=== PATIENT | female | born 1975 | race Caucasian/White ===

== ENCOUNTER 2020-05-01 08:56 | Outpatient (CLI) | payer BC, SELFPAY ==
[2020-05-01 09:11] LABS: Hematocrit 45.3 % (35.0-49.0); Hemoglobin 15.3 g/dL (12.0-15.0)
--- NOTE | 2020-05-01 09:20 | ECG_ITS ---
Measurements Intervals [place] Rate: 76 P: 66 IL: 128 QRS: 71 QRSD: 73 T: 61 QT: 342 QTc: 386 Interpretive Statements SINUS RHYTHM RSR' IN V1 OR V2, PROBABLY NORMAL VARIANT NORMAL ECG Electronically Signed On 05-01-2020 9:37:51 CDT by Carroll Donohue D.O.
== END 2020-05-01 08:57 | disposition home or self-care (01) ==
PROVIDERS: PCP Nurse Practitioner Psychiatric/Mental Health; Visit Provider Anesthesiology
DX: N92.6 Irregular menstruation, unspecified (principal); Z72.0 Tobacco use
CPT/HCPCS: 36415; 85014; 85018; 93005

== ENCOUNTER 2020-05-05 13:44 | Outpatient (CLI) | payer BC, SELFPAY ==
--- NOTE | ~2020-05-05 | MM_ITS ---
EXAMINATION: MM screening dwaine BI w breana HISTORY: Screening mammogram TECHNIQUE: Craniocaudal and mediolateral oblique 3-D tomosynthesis images were obtained and synthetic 2-D images were generated. CAD analysis was submitted and interpreted. COMPARISON: 02/18/2019, 02/16/2018, 02/06/2017 bilateral digital screening mammogram examinations BREAST PARENCHYMAL COMPOSITION: The breasts are extremely dense, which lowers the sensitivity of mamm ography. FINDINGS: There is no evidence of suspicious mass, calcification, or architectural distortion to sugg est malignancy in either breast. There has been no suspicious interval change. IMPRESSION: 1. No mammographic evidence of malignancy. 2. Recommend routine screening mammography in one year. BI-RADS Category 1: Negative Reviewed, dictated and finalized at location A.
== END 2020-05-05 13:45 | disposition home or self-care (01) ==
LOC: CHSIMG 13:45
PROVIDERS: PCP Nurse Practitioner Psychiatric/Mental Health; Visit Provider Nurse Practitioner Psychiatric/Mental Health
DX: Z12.31 Encounter for screening mammogram for malignant neoplasm of breast (principal)
CPT/HCPCS: 77063; 77067

== ENCOUNTER 2020-05-09 01:25 | Outpatient (CLI) | payer BC, SELFPAY ==
[2020-05-09 19:17] LABS: SARS-CoV-2 RNA PCR Negative
== END 2020-05-09 01:26 | disposition home or self-care (01) ==
PROVIDERS: PCP Nurse Practitioner Psychiatric/Mental Health; Visit Provider Student in an Organized Health Care Education/Training Program
DX: Z01.818 Encounter for other preprocedural examination (principal); Z11.59 Encounter for screening for other viral diseases
CPT/HCPCS: 87635; C9803; U0003

== ENCOUNTER 2020-05-11 00:46 | Day surgery (SDC) | payer BC, SELFPAY ==
[2020-04-28 09:34] VITALS: BMI 20.2
--- NOTE | 2020-05-11 07:25 | P.HP_ITS ---
H&P: HPI History of Present Illness Chief complaint: Irregular Bleeding Narrative: Radha Cannon is a 45 year old female who presents for hysteroscopy, D&C, endometrial ablation for abnormal uterine bleeding. She initially presented with intermenstrual bleeding for several months. pt requested surgical management of AUB via endometrial ablation. Review of Systems Cardiovascular: Cardiovascular: Denies chest pain, Denies leg edema, Denies palpitations, Denies dyspnea and Denies dyspnea on exertion Respiratory: Respiratory: Denies cough, Denies dyspnea and Denies dyspnea on exertion Gastrointestinal: Gastrointestinal: Denies abdominal pain, Denies cons tipation, Denies diarrhea, Denies nausea and Denies vomiting Genitourinary: Genitourinary: Denies hematuria, Denies urinary frequency, Denies dysuria, Denies pelvic pain, Denies urinary incontinence and Denies vaginal discharge Neurologic: Reports system reviewed and no additional complaints, except as documented Psychiatric: Psychiatric: Reports no additional psychiatric complaints Endocrine: Endocrine: Denies palpitations Meds Home Medications and Allergies Home Medications Medication Instructions Recorded Confirmed Type citalopram 20 mg PO DAILY 04/28/20 04/28/20 History Allergies Allergy/AdvReac Type Severity Reaction Status Date / Time Penicillins Allergy Unknown Hives Unverified 05/02/20 09:18 Exam Const: General: no acute distress Eyes: EOM: EOMs intact bilaterally Neck: Neck: supple Thyroid: thyroid normal Chest: Breast/axilla inspection: normal inspection of the breasts Breas t/axilla palpation: normal palpation of the breasts, normal palpation of the axillae and no axillary lymphadenopathy Resp: Effort & Inspection: normal respiratory effort Auscultation: clear to auscultation bilaterally Cardio: Rate: regular rate Rhythm: regular rhythm GI: Inspection: non-distended GI Palp: Yes Soft to palpation, No Tenderness to palpation present (GI) and No Guarding due to palpation present (GI) Auscultation: normal bowel sounds : General: No bladder normal to palpation External Female Exam: normal external appearance Speculum Exam - Vagina: normal vaginal discharge and No vaginal bleeding Speculum Exam - Cervix: nontender Bimanual exam- vagina & uterus: No bladder normal to palpation and No Cervical tenderness present OB/external & speculum: No vaginal bleeding Skin: General skin exam: normal color and no rashes or lesions noted Neuro: Cognition (Neuro): normal cognition Speech: normal speech Extrem: General: normal to inspection and no edema Psych: Mental Status: mental status grossly normal Affect: normal affect Assessment and Plan Assessment and plan (1) Abnormal uterine bleeding (AUB): Code(s): N93.9 - Abnormal uterine and vaginal bleeding, unspecified Status: Acute Assessment and Plan: pt c/o intolerable intermenstrual bleeding for several months pt requested surgical management via endometrial ablation pelvic US showed uterus meansuring 8.7cm with a 16mm strip and no structural causes of AUB will plan for hystereoscopy, D&C, endometrial ablation
[2020-05-11 10:00] VITALS: BP 114/70; PULSE 85; RESP 14; TEMP 36.7; O2SAT 99
--- NOTE | 2020-05-11 10:21 | WPDANESEPPF ---
Anes - Initial Pre Proc Eval Procedure: Operation Date: 05/11/20 12:00 Proposed Procedures p Hysteroscopy, Dilation and Curettage, Novasure Endometrial Ablation - Som Tam MD Date/Time: 05/11/20 10:21 Surgeon: Som Tam MD Pre Op Diagnosis: Irregular Bleeding Patient Data Age: 45 Gender: F Height: 5 ft 2 in Weight: 50.35 kg Allergies Allergy/AdvReac Type Severity Reaction Status Date / Time Penicillins Allergy Unknown Hives Unverified 05/02/20 09:18 Home Medications Medication Instructions Recorded Confirmed Type citalopram 20 mg PO DAILY 04/28/20 04/28/20 History Patient hx anesthesia problems: none Family hx anesthesia problems: none [facility] Past Medical History Medical History (Updated 05/11/20 @ 10:22 by Archie Li MD) Anxiety Tobacco abuse Anes - Eval Final PreProcedure Day of Procedure 05/11/20 10:21 Patient weight: normal Heart: regular rate and rhythm Lungs: decreased breath sounds Airway: Mallampati scale class II Neurological: alert and oriented Last oral intake: >/= 8 hours ASA classification: III Emergent: no Anesthetic plan: proceed Anesthesia type and monitoring: general GIVS and standard monitoring Informed Consent: The patient's anesthetic plan and its attendant risks and benefits were discussed with the patient/family/POA. Questions were solicited and answers provided to the satisfaction of the patient/family/POA.
[2020-05-11] MEDS: ACETAMINOPHEN 500 MG TABLET 1000 MG PO (10:25)
[2020-05-11] MEDS: LACTATED RINGERS 1,000 ML 30 ML IV CONT ×2 (10:30→12:53)
[2020-05-11] MEDS: KETOROLAC 30 MG/ML VIAL (*BKC) 15 MG IV PUSH (12:43)
--- NOTE | 2020-05-11 12:49 | PM.PROC ---
Procedure Note - Detailed Date of procedure: 05/11/20 Pre-op diagnosis: Irregular Bleeding Post-op diagnosis: same Procedure performed: Paracervical block Hysteroscopy D&C endometrial ablation Description of procedure: The risks, benefits, indications and alternatives were reviewed with the patient and informed consent was obtained. The patient was taken to the operating room and placed under general anesthesia without incident. A vaginal exam was performed and the uterus was noted to be retroverted. The patient was placed in dorsolithotomy position, prepped and draped in the usual sterile fashion. Sterile speculum was placed in the vagina, and the cervix was grasped with a tenaculum. A paracervical block was performed with 1% lidocaine. The cervix was dilated and the hysteroscope was introduced. The cervical canal was visualized and the hysteroscope was passed into the uterine cavity without incident. The endometrial lining was visualized. Both ostia of the fallopian tubes were visualized and appear to be grossly normal. The hysteroscope was removed, and the cervix was further dilated to allow for passage of the sharp curette. The sharp curette was advanced to the fundus and endometrial curettage was performed, with the curettage sampling being preserved and sent for pathology. The uterus sounded to 8 cm total, with the cervical length measured as 2.5 cm, with a difference of 5.5 cm for the uterine cavity. The Novasure was introduced into the cavity, and the uterine cavity width was measured to be 3 cm. Power setting was 91 on the Novasure. The device was tested and noted to have good seal, and the ablation process itself took 95 seconds. The Novasure device was removed and the hysteroscope was reintroduced, visualizing the ablation of the endometrium in total. There was minimal bleeding noted and the tenaculum was removed with good hemostasis noted. Instrument, sharp, and sponge counts were correct. The patient tolerated the procedure well. The patient was taken to the recovery area in stable condition. Anesthesia: GLMA Surgeon: Som Tam MD Estimated blood loss (mL): 15 Drains: No Packing: No Pathology: yes (endometrial curettings) Complications: No immediate complications Condition: stable Disposition: PACU
[2020-05-11 12:53] VITALS: BP 88/50; PULSE 78; RESP 14; O2SAT 95
[2020-05-11 13:23] VITALS: BP 101/71; PULSE 67; RESP 14
[2020-05-11 13:53] VITALS: BP 105/67; PULSE 60; RESP 14
== END 2020-05-11 14:15 | disposition home or self-care (01) ==
PROVIDERS: PCP Nurse Practitioner Psychiatric/Mental Health; Visit Provider Student in an Organized Health Care Education/Training Program
PROC: 0U5B8ZZ Destruction of Endometrium, Via Natural or Artificial Opening Endoscopic (ICD-10-PCS; CPT 58563; principal; 2020-05-11 12:00)
DX: N93.9 Abnormal uterine and vaginal bleeding, unspecified (principal); N84.0 Polyp of corpus uteri; F41.9 Anxiety disorder, unspecified
CPT/HCPCS: 58563; 87635; 88305; A9270; C9803; J1100; J1885; J2250; J2405; J2704; J3010; J7030; J7120; U0003

== ENCOUNTER 2020-08-05 11:52 | Emergency (ER) | payer BC, SELFPAY ==
--- NOTE | ~2020-08-05 | CT_ITS ---
EXAMINATION: CT abdomen pelvis wo con DATE: 08/05/2020 15:19 INDICATION: Flank pain TECHNIQUE: Computed tomography (CT) of the abdomen and pelvis was performed without intravenous contr ast. Automated exposure control and iterative reconstruction technique were employed. The dose-length product was 173.40 mGy-cm. COMPARISON: None FINDINGS: Small calcified nodule at the right lower lobe consistent with old granulomatous disease. Visualized inferior heart is normal. No pericardial or pleural effusion. Liver, gallbladder, spleen, pancreas, b ilateral adrenal glands and right kidney are normal. 7 mm lesion at the lower pole of the left kidney with slightly higher attenuation than the surrounding renal parenchyma. No urolithiasis or hydroneph rosis. Normal appendix. Moderate amount of stool scattered throughout the colon. No abnormal bowel wa ll thickening or obstruction. Bladder and uterus are unremarkable. Bilateral tubal ligation clips. 1. 8 cm right adnexal cyst. Small amount of likely physiologic free fluid in the cul-de-sac. No abscess or free intraperitoneal gas. Small bone islands at the bilateral femoral heads. IMPRESSION: 1. 1.8 cm right adnexal cyst/follicle and small amount of likely physiologic free fluid in the cul-de -sac. No other acute intra-abdominal/pelvic process. 2. 7 mm indeterminate left renal lesion statistically most likely to represent a proteinaceous/hemorr hagic cyst although solid neoplasm cannot be excluded. Consider further evaluation with follow-up ult rasound or pre and postcontrast MRI. Reviewed, dictated and finalized at location A. IMPRESSION: 1. 1.8 cm right adnexal cyst/follicle and small amount of likely physiologic fr ee fluid in the cul-de-sac. No other acute intra-abdominal/pelvic process. 2. 7 mm indeterminate left renal lesion statistically most likely to represent a proteinaceous/hemorrhagic cyst although solid neoplasm cannot be excluded. Co nsider further evaluation with follow-up ultrasound or pre and postcontrast MRI .
[2020-08-05 13:39] VITALS: BP 109/63; PULSE 75; RESP 12; TEMP 36.9; O2SAT 99
[2020-08-05] MEDS: SODIUM CHLORIDE 0.9% IV 500 ML 999 ML IV CONT (14:14)
[2020-08-05] MEDS: KETOROLAC 30 MG/ML VIAL (*BKC) IV PUSH (14:15)
[2020-08-05 14:47] LABS: Hemoglobin 14.6 g/dL (12.0-15.0); Mean Corpuscular HGB Conc 33.2 g/dL (32.0-36.0); Mean Corpuscular Hemoglobin 32.3 pg (27.0-31.0); Mean Corpuscular Volume 97.3 fL (78.0-102.0); Platelet Count Result 211 K/mm3 (150-420); Red Blood Count 4.52 M/mm3 (4.20-5.40); Red Cell Distribution Width 12.7 % (11.6-14.4); White Blood Count 8.1 K/mm3 (4.8-10.8)
[2020-08-05 14:48] LABS: Add Urine Microscopic? NO; Appearance Urine Clear (Clear); Bilirubin Urine Negative (Negative); Blood Urine Negative (Negative); Color Urine Yellow (Yellow); Glucose Urine UA Negative (Negative); Ketones Urine Negative (Negative); Leukocyte Esterase Ur Negative (Negative); Nitrate Urine Negative (Negative); Protein Urine Negative (Negative); Specific Grav Ur 1.015 (1.010-1.020); Urobilinogen Urine 0.2 mg/dL (0.2-1.0); pH Urine 5.5 (5.0-8.0)
[2020-08-05 14:49] LABS: Pregnancy On Board Control Positive; Urine Pregnancy Test Negative
[2020-08-05 15:07] LABS: Alanine Aminotransferase 20 U/L (14-59); Albumin Level 3.7 g/dL (3.4-5.0); Alkaline Phosphatase 105 U/L (46-116); Anion Gap 7 mmol/L (8-16); Aspartate Amino Transferase 11 U/L (15-37); Bilirubin,Total 0.5 mg/dL (0.00-1.00); Blood Urea Nitrogen 13 mg/dL (7-18); Calcium 8.5 mg/dL (8.5-10.1); Carbon Dioxide 27 mmol/L (21-32); Chloride 104 mmol/L (98-108); Estimated CRCL calculation 58 ml/min; Estimated Glomerular Filt Rate > 60; Glucose 89 mg/dL (70-99); Osmolality Calculated 285 mOsm/kg (285-295); Potassium 3.8 mmol/L (3.5-5.1); Sodium 138 mmol/L (136-145); Total Protein 6.9 g/dL (6.4-8.2)
--- NOTE | 2020-08-05 15:48 | ED.BACK ---
HPI - Back Pain/Injury General Chief Complaint: Back Pain/Injury Stated Complaint: low back pain Source: patient Limitations: no limitations History of Present Illness HPI Narrative: this is a 45-year-old female presents with some low back pain radiating to her right flank air with no suprapubic tenderness no dysuria no hematuria no fever chills no nausea or vomiting. This pain started approximately 1 to 2 days ago has had similar pain in the past intensified with with bending and lifting. MD elicited complaint: back pain Pertinent past history: prior back pain Onset (ago): day(s) Timing: intermittent Severity: mild Similar Symptoms Previously: Yes Quality: dull and aching Radiation: none Exacerbating factors: none and movement Relieving factors: immobilization Context: while lifting, turning/twisting and bending Related Data Home Medications Medication Instructions Recorded Confirmed citalopram 20 mg PO DAILY 04/28/20 08/05/20 Allergies Allergy/AdvReac Type Severity Reaction Status Date / Time Penicillins Allergy Intermediate Hives Verified 05/11/20 10:47 Review of Systems Review of Systems: All systems reviewed & are unremarkable except as noted in HPI and below [facility] Past Medical History Medical History Anxiety Tobacco abuse Exam Const: General: no acute distress Orientation/consciousness: patient oriented x3 HENMT: Head: normal to inspection Eyes: Conjunctivae: conjunctivae normal Pupils: Equal, round and reactive pupils present Neck: Neck: normal visual inspection, no lymphadenopathy and no meningeal signs Chest: Chest palpation & inspection: normal inspection of the chest Resp: Effort & Inspection: normal respiratory effort Auscultation: clear to auscultation bilaterally Cardio: Rate: regular rate Rhythm: regular rhythm GI: Auscultation: normal bowel sounds : General: Yes no CVA tenderness Urinary Catheter: Urinary Catheter: patent and draining Back/Spine/Pelvis: Back: CVA tenderness ( Mild right-sided) Skin: General skin exam: normal color Neuro: General: patient oriented x3 Extrem: General: normal to inspection Course Course Emergency Course: patient pain was improved after IV Toradol, CT scan showed a left renal cyst at the incidental finding with a needing a MRI for resolution between cyst and solid mass, explained this to the patient and advised her to follow-up with primary care physician for an MRI to evaluate cyst versus his mass. Vital Signs Vital signs: Vital Signs Temperature 36.9 C 08/05/20 13:39 Pulse Rate 75 08/05/20 13:39 Respiratory Rate 12 08/05/20 13:39 Blood Pressure 109/63 08/05/20 13:39 Pulse Oximetry 99 08/05/20 13:39 Temperature 36.9 C 08/05/20 13:39 Pulse Rate 75 08/05/20 13:39 Respiratory Rate 12 08/05/20 13:39 Blood Pressure 109/63 08/05/20 13:39 Pulse Oximetry 99 08/05/20 13:39 MDM - Back Pain/Injury Lab Data Result diagrams: 08/05/20 14:31 08/05/20 14:31 Labs: Lab Results 08/05/20 08/05/20 08/05/20 Range/Units 14:00 14:31 14:31 WBC 8.1 (4.8-10.8) K/mm3 RBC 4.52 (4.20-5.40) M/mm3 Hgb 14.6 (12.0-15.0) g/dL Hct 44.0 (35.0-49.0) % MCV 97.3 (78.0-102.0) fL MCH 32.3 H (27.0-31.0) pg MCHC 33.2 (32.0-36.0) g/dL RDW 12.7 (11.6-14.4) % Plt Count 211 (150-420) K/mm3 MPV 10.0 (9.2-11.8) fl Sodium 138 (136-145) mmol/L Potassium 3.8 (3.5-5.1) mmol/L Chloride 104 (98-108) mmol/L Carbon Dioxide 27 (21-32) mmol/L Anion Gap 7 L (8-16) mmol/L BUN 13 (7-18) mg/dL Creatinine 0.86 (0.55-1.02) mg/dL Estim Creat Clear Calc 58 ml/min Estimated GFR > 60 (59 - ) Glucose 89 (70-99) mg/dL Calculated Osmolality 285 (285-295) mOsm/kg Calcium 8.5 (8.5-10.1) mg/dL Total Bilirubin 0.5 (0.00-1.00) mg/dL AST 11 L (15-
[2020-08-05 15:56] VITALS: BP 153/61; PULSE 70; RESP 15; O2SAT 100
== END 2020-08-05 16:04 | disposition home or self-care (01) ==
PROVIDERS: Emergency Provider Emergency Medicine; PCP Nurse Practitioner Psychiatric/Mental Health
DX: M54.30 Sciatica, unspecified side (principal); N30.00 Acute cystitis without hematuria
CPT/HCPCS: 36415; 74176; 80053; 81003; 81025; 85027; 96361; 96374; 99283; 99284; J1885; J7040

== ENCOUNTER 2020-10-24 16:17 | Emergency (ER) | payer BC, SELFPAY ==
[2020-10-24 16:28] VITALS: BP 112/61; PULSE 102; RESP 16; TEMP 37.7; O2SAT 96
--- NOTE | 2020-10-24 16:33 | ED.FEMALEGU ---
HPI - Female Genitourinary General Chief complaint: Urogenital-Female Stated complaint: Urogenital-Female Source: patient Mode of arrival: ambulatory Limitations: no limitations History of Present Illness HPI Narrative: Patient is a 45-year-old female who presents complaining of UTI. Patient reports dysuria and frequency x3 to 4 days. Patient reports UTI in August x2. She denies flank pain, fever, chills or all other complaints. She has been taking Azo [id number] for the past 3 to 4 days and increasing fluids with limited relief. MD elicited complaint: dysuria Related Data Home Medications Medication Instructions Recorded Confirmed citalopram 20 mg PO DAILY 04/28/20 10/24/20 Allergies Allergy/AdvReac Type Severity Reaction Status Date / Time Penicillins Allergy Intermediate Hives Verified 10/24/20 16:28 Review of Systems Review of Systems: Narrative: CONSTITUTIONAL: Denies fever, chills, or sweats. EYES: Denies visual changes, redness, or discharge. ENT: Denies rhinorrhea, congestion, sore throat, or otalgia. CARDIOVASCULAR: Denies chest pain, palpitations, or edema. RESPIRATORY: Denies cough or dyspnea. GASTROINTESTINAL: Denies abdominal pain, nausea, vomiting, or diarrhea. GENITOURINARY: Reports dysuria and frequency SKIN: Denies rash or itching. MUSCULOSKELETAL: Denies back pain, joint pain, or myalgia. NEUROLOGIC: Denies headache, numbness, dizziness, or weakness. PSYCHIATRIC: Denies anxiety or depression. PMFSH Past Medical History Medical History Anxiety Ovarian cyst Tobacco abuse Social History Social History (Updated 10/24/20 @ 16:36 by ROSITA Helm) Smoking status: Current every day smoker Tobacco type: cigarettes Alcohol intake: current Alcohol use details: Occasional Substance use: never Exam Narrative: Exam Narrative: GENERAL: Well-appearing, well-nourished, and in no acute distress. HEAD: Normocephalic, atraumatic. EYES: No redness or drainage. ENT: Mucous membranes pink and moist. CHEST: No respiratory distress. HEART: Regular rate and rhythm. EXTREMITIES: Normal range of motion. SKIN: Warm, dry, no rash. NEURO: No focal deficits. Alert and oriented x3. Gait steady. PSYCH: Normal affect. No signs of depression or anxiety. Course Vital Signs Vital signs: Vital Signs Temperature 37.7 C H 10/24/20 16:28 Pulse Rate 102 H 10/24/20 16:28 Respiratory Rate 16 10/24/20 16:28 Blood Pressure 112/61 10/24/20 16:28 Pulse Oximetry 96 10/24/20 16:28 Temperature 37.7 C H 10/24/20 16:28 Pulse Rate 102 H 10/24/20 16:28 Respiratory Rate 16 10/24/20 16:28 Blood Pressure 112/61 10/24/20 16:28 Pulse Oximetry 96 10/24/20 16:28 Reviewed MDM - Female Genitourinary MDM Narrative Medical decision making narrative: Patient's UA is inconclusive as patient has been taking Azo [id number]. Nitrates and leuks are positive in UA. Patient is symptomatic and will be treated for UTI at this time. Patient instructed on increasing fluids and follow-up care. Patient is stable for discharge home with outpatient follow-up as discussed. Differential Diagnosis Differential diagnosis: Likely urinary tract infection, bacterial vaginosis, ovarian cyst and cystitis Lab Data Attestation: I reviewed the patient's lab results. Labs: Urine Glucose 1+ Reference Range: Negative Urine Bilirubin 2+ Reference Range: Negative Urine Ketone Trace Reference Range: Negative Urine Specific [place] 1.020 Reference Range:1.001-1.035 Urine Blood Negative
== END 2020-10-24 16:51 | disposition home or self-care (01) ==
PROVIDERS: Emergency Provider Nurse Practitioner
DX: N39.0 Urinary tract infection, site not specified (principal); F41.9 Anxiety disorder, unspecified; F17.210 Nicotine dependence, cigarettes, uncomplicated
CPT/HCPCS: 81003; 87077; 87086; 87088; 87186; 99213; G0463

== ENCOUNTER 2021-05-09 14:15 | Outpatient (CLI) | payer BC, SELFPAY ==
--- NOTE | ~2021-05-09 | MM_ITS ---
EXAMINATION: MM screening dwaine BI w breana HISTORY: Screening mammogram, family history of breast cancer in her mother. TECHNIQUE: Craniocaudal and mediolateral oblique 3-D tomosynthesis images were obtained and synthetic 2-D images were generated. CAD analysis was submitted and interpreted. COMPARISON: 05/05/2020, 02/18/2019, 02/16/2018 BREAST PARENCHYMAL COMPOSITION: The breasts are extremely dense, which lowers the sensitivity of mamm ography. FINDINGS: There is no evidence of suspicious mass, calcification, or architectural distortion to sugg est malignancy in either breast. There has been no suspicious interval change. IMPRESSION: 1. No mammographic evidence of malignancy. 2. Recommend routine screening mammography in one year. BI-RADS Category 1: Negative Reviewed, dictated and finalized at location A.
== END 2021-05-09 14:16 | disposition home or self-care (01) ==
LOC: CHSIMG 14:17
PROVIDERS: PCP Nurse Practitioner Psychiatric/Mental Health; Visit Provider Nurse Practitioner Psychiatric/Mental Health
DX: Z12.31 Encounter for screening mammogram for malignant neoplasm of breast (principal)
CPT/HCPCS: 77063; 77067

== ENCOUNTER 2022-05-21 11:36 | Outpatient (CLI) | payer BC, SELFPAY ==
--- NOTE | ~2022-05-21 | MM_ITS ---
EXAMINATION: MM screening dwaine BI w breana HISTORY: Screening TECHNIQUE: Craniocaudal and mediolateral oblique 3-D tomosynthesis images were obtained and synthetic 2-D images were generated. CAD analysis was submitted and interpreted. COMPARISON: Comparison to multiple prior studies sequentially, with oldest reviewed study dated 04/2017. BREAST PARENCHYMAL COMPOSITION: The breasts are extremely dense, which lowers the sensitivity of mamm ography. FINDINGS: There is no evidence of suspicious mass, calcification, or architectural distortion to sugg est malignancy in either breast. There has been no suspicious interval change. IMPRESSION: 1. No mammographic evidence of malignancy. 2. Recommend routine screening mammography in one year. BI-RADS Category 1: Negative Reviewed, dictated and finalized at location A.
== END 2022-05-21 11:37 | disposition home or self-care (01) ==
LOC: CHSIMG 11:37
PROVIDERS: PCP Physician Assistant; Visit Provider Physician Assistant
DX: Z12.31 Encounter for screening mammogram for malignant neoplasm of breast (principal)
CPT/HCPCS: 77063; 77067

== ENCOUNTER 2023-01-25 17:31 | Emergency (ER) | payer BC, SELFPAY ==
[2023-01-25 17:32] VITALS: BP 121/68; PULSE 78; RESP 16; TEMP 37; O2SAT 99
--- NOTE | 2023-01-25 17:56 | ED.FEMALEGU ---
HPI - Female Genitourinary General Chief complaint: Urogenital-Female Stated complaint: Poss UTI Time Seen by Provider: 01/25/23 17:56 History of Present Illness HPI Narrative: PATIENT PRESENTS WITH RIGHT LOWER QUADRANT PAIN ON AND OFF FOR THE LAST 4 DAYS. PATIENT DENIES ANY PAIN AND DISCOMFORT AT THIS TIME. PATIENT DENIES ANY BURNING WITH URINATION NO BACK PAIN NO FLANK PAIN NO GROSS HEMATURIA. PATIENT DENIES ANY VAGINAL DISCHARGE NO CONCERN FOR STDS. PATIENT DENIES ANY CONSTIPATION AND NO DIARRHEA. Related Data Home Medications Medication Instructions Recorded Confirmed citalopram 20 mg tablet 20 mg PO DAILY 04/28/20 01/25/23 Allergies Allergy/AdvReac Type Severity Reaction Status Date / Time Penicillins Allergy Intermediate Hives Verified 01/25/23 17:50 Review of Systems Review of Systems: CONSTITUTIONAL: DENIES FEVER, CHILLS, OR SWEATS. EYES: DENIES VISUAL CHANGES, REDNESS, OR DISCHARGE. ENT: DENIES RHINORRHEA, CONGESTION, SORE THROAT, OR OTALGIA. CARDIOVASCULAR: DENIES CHEST PAIN, PALPITATIONS, OR EDEMA. RESPIRATORY: DENIES COUGH OR DYSPNEA. GASTROINTESTINAL: DENIES ABDOMINAL PAIN, NAUSEA, VOMITING, OR DIARRHEA. GENITOURINARY: DENIES DYSURIA OR HEMATURIA. SKIN: DENIES RASH OR ITCHING. MUSCULOSKELETAL: DENIES BACK PAIN, JOINT PAIN, OR MYALGIA. NEUROLOGIC: DENIES HEADACHE, NUMBNESS, OR WEAKNESS. PSYCHIATRIC: DENIES ANXIETY OR DEPRESSION. [facility] Past Medical History Medical History Anxiety Ovarian cyst Tobacco abuse Social History Social History (Updated 10/24/20 @ 16:36 by Luann Juan, SECURITY OFFICER SUPERVISOR) Smoking status: Current every day smoker Tobacco type: cigarettes Alcohol intake: current Alcohol use details: Occasional Substance use: never Exam Narrative: GENERAL: WELL-APPEARING, WELL-NOURISHED, AND IN NO ACUTE DISTRESS. HEAD: NORMOCEPHALIC, ATRAUMATIC. EYES: PERRLA AND EOMI. ENT: NARES CLEAR, NO RHINORRHEA OR EPISTAXIS. MUCOUS MEMBRANES MOIST. NECK: SUPPLE. CHEST: CLEAR TO AUSCULTATION. NO RESPIRATORY DISTRESS. HEART: REGULAR RATE AND RHYTHM. NO MURMUR HEARD. NORMAL PERIPHERAL PULSES. ABDOMEN: SOFT, NONTENDER, NONDISTENDED, NORMAL ACTIVE BOWEL SOUNDS. NO POSITIVE SIGNS, NO GUARDING. EXTREMITIES: NORMAL RANGE OF MOTION. NO EDEMA. SKIN: WARM, DRY, NO RASH. NEURO: NO FOCAL DEFICITS. ALERT AND ORIENTED X3. TOREY COMA SCALE EYE OPENING: SPONTANEOUS 4 TOREY COMA SCALE MOTOR: OBEYS COMMANDS 6 TOREY COMA SCALE VERBAL: ORIENTED 5 TOREY COMA SCALE TOTAL 15 Course Course Level of Care: Express Care Visit Vital Signs Vital signs: Vital Signs Temperature 37.0 C 01/25/23 17:32 Pulse Rate 78 01/25/23 17:32 Respiratory Rate 16 01/25/23 17:32 Blood Pressure 121/68 01/25/23 17:32 Pulse Oximetry 99 01/25/23 17:32 Oxygen Delivery Room Air 01/25/23 17:32 Temperature 37.0 C 01/25/23 17:32 Pulse Rate 78 01/25/23 17:32 Respiratory Rate 16 01/25/23 17:32 Blood Pressure 121/68 01/25/23 17:32 Pulse Oximetry 99 01/25/23 17:32 Oxygen Delivery Room Air 01/25/23 17:32 DISCUSSED URINALYSIS WITH PATIENT AND WILL WAIT BEFORE STARTING ANTIBIOTIC FOR CULTURE RESULTS. PATIENT AGREEABLE WITH PLAN OF CARE AND WILL CALL IN 3 DAYS WITH CULTURE RESULTS AND PLACED ON ANTIBIOTIC AT THAT TIME. MDM - Female Genitourinary Lab Data Labs: Urine Glucose Negative Reference Range: Negative Urine Bilirubin Negative Reference Range: Negative Urine Ketone 1+ Reference Range: Negative Urine Specific [place] 1.010 Reference Range:1.001-1.035 Urine Blood Negative Refe
== END 2023-01-25 18:04 | disposition home or self-care (01) ==
PROVIDERS: Emergency Provider Nurse Practitioner Family
DX: R10.31 Right lower quadrant pain (principal); F17.210 Nicotine dependence, cigarettes, uncomplicated
CPT/HCPCS: 81003; 87086; 99213; G0463

== ENCOUNTER 2023-01-25 19:10 | Emergency (ER) | payer BC, SELFPAY ==
--- NOTE | ~2023-01-25 | CT_ITS ---
EXAMINATION: CT abdomen pelvis w con INDICATION: Right lower quadrant pain TECHNIQUE: Computed tomographic images of the abdomen and pelvis were obtained after the administrati on of 100 cc of Omnipaque 350 intravenous contrast. The dose-length product (DLP) was 205.61 mGy-cm. Automated exposure control and iterative reconstruction technique were employed. COMPARISON: 08/05/2020 FINDINGS: The lung bases are clear. The heart size is normal. There is a 6 mm cyst of the liver. The spleen, pancreas, gallbladder, and adrenal glands are normal. The right kidney is unremarkable. There is a stable 7 mm soft tissue density lesion of the left mid kidney without significant change since the comparison examination, likely a proteinaceous cyst. No pathologically enlarged abdominal or pelv ic lymph nodes are identified. No free intraperitoneal gas or evidence of bowel obstruction. A modera te volume of colonic stool is present. The appendix is normal. There is a small amount of free fluid in the right adnexa and cul-de-sac. Tubal ligation clips are noted. IMPRESSION: 1. Small amount of free fluid in the right adnexa and cul-de-sac, likely reflecting ovarian cyst rupt ure. Reviewed, dictated and finalized at location A. IMPRESSION: 1. Small amount of free fluid in the right adnexa and cul-de-sac, likely reflec ting ovarian cyst rupture.
[2023-01-25 19:11] VITALS: BP 151/78; PULSE 87; RESP 16; TEMP 36.7; O2SAT 97
[2023-01-25 19:25] LABS: Basophils Absolute Auto 0.1 K/mm3 (0.0-0.1); Basophils Percent Auto 0.4 % (0.2-1.2); Eosinophils Absolute Auto 0.4 K/mm3 (0-0.3); Eosinophils Percent Auto 2.4 % (0-4.4); Hematocrit 42.5 % (37.0-47.0); Hemoglobin 14.5 g/dL (12.0-15.0); Immature Granulocyte Absolute 0.05 K/mm3 (0.00-0.031); Immature Granulocyte Percent A 0.3 % (0-0.5); Lymphocytes Absolute Auto 3.53 K/mm3 (0.9-3.2); Lymphocytes Percent Auto 22.4 % (18.3-44.2); Mean Corpuscular HGB Conc 34.1 g/dl (32-36); Mean Corpuscular Hemoglobin 33.6 pg (26-34); Mean Corpuscular Volume 98.6 fl (80-100); Mean Platelet Volume 9.7 fl (7.4-10.4); Monocytes Absolute Auto 0.8 K/mm3 (0.1-0.6); Monocytes Percent Auto 4.8 % (2.6-8.5); Neutrophils Percent Auto 69.7 % (45.5-73.1); Platelet Count Result 260 k/mm3 (150-375); Red Blood Count 4.31 M/mm3 (4.2-5.4); Red Cell Distribution Width 12.8 % (11.5-14.5); White Blood Count 15.7 K/mm3 (4.5-10.0)
[2023-01-25 19:36] LABS: Alanine Aminotransferase 18 U/L (6-35); Albumin Level 4.7 g/dL (3.5-5.1); Alkaline Phosphatase 105 U/L (38-126); Anion Gap 6 mmol/L (8-16); Aspartate Amino Transferase 24 U/L (14-36); Bilirubin,Total 0.8 mg/dL (0.2-1.3); Blood Urea Nitrogen 9 mg/dL (7-17); Calcium 9.1 mg/dL (8.4-10.2); Carbon Dioxide 29 mmol/L (22-30); Chloride 105 mmol/L (98-107); Estimated CRCL calculation 61 ml/min; Estimated Glomerular Filt Rate > 60; Glucose 103 mg/dL (65-110); Lipase 42 U/L (23-300); Potassium 3.6 mmol/L (3.4-5.0); Sodium 140 mmol/L (137-145)
[2023-01-25 21:48] LABS: Appearance Urine Clear (Clear); Bacteria Urine None Seen /hpf; Bilirubin Urine Negative (Negative); Blood Urine Negative (Negative); Color Urine Yellow (Yellow); Glucose Urine UA Negative (Negative); Ketones Urine 1+ mg/dL (Negative); Leukocyte Esterase Ur Trace LEU/UL (Negative); Nitrate Urine Negative (Negative); Non Pathogenic Casts 0-2; Protein Urine Negative (Negative); RBC Urine 0-2 /hpf (0-2); Specific Grav Ur 1.016 (1.001-1.035); Squamous Epithelial Cell Urine None seen /hpf (Few); Urobilinogen Urine 0.2 mg/dL (<2.0); WBC Urine 0-5 /hpf; pH Urine 5.5 (5.0-9.0)
[2023-01-25 21:50] LABS: Add Urine Microscopic? YES
[2023-01-25] MEDS: SODIUM CHLORIDE 0.9% IV 1,000 ML 999 ML IV CONT (22:13)
[2023-01-25] MEDS: ONDANSETRON INJ 4 MG/2 ML VIAL IV PUSH (22:13)
--- NOTE | 2023-01-25 23:30 | ED.GENADULT ---
HPI - General Adult General Chief complaint: [employer] Stated complaint: pain in right ovary Time Seen by Provider: 01/25/23 21:49 History of Present Illness HPI narrative: Patient 48-year-old female who presents the emergency department with chief complaint of abdominal pain. The patient reports that she started having pain in her abdomen this over the last several days and reports that is localized to the right lower quadrant. Patient was seen in urgent care recently and instructed to return to the emergency department if she has worsening symptoms. Patient states the pain is a 10 out of 10 reports that she still has her appendix the patient denies fever denies vomiting denies diarrhea and denies dysuria. Patient reports she has prior history of a tubal ligation Related Data Home Medications Medication Instructions Recorded Confirmed citalopram 20 mg tablet 20 mg PO DAILY 04/28/20 01/25/23 Allergies Allergy/AdvReac Type Severity Reaction Status Date / Time Penicillins Allergy Intermediate Hives Verified 01/25/23 19:10 Review of Systems Review of Systems: A 10 system review of systems was completed on the patient and is negative except for what is stated in the HPI. Nursing and ancillary documentation was reviewed. [facility] Past Medical History Medical History Anxiety Ovarian cyst Tobacco abuse Social History Social History Smoking status: Current every day smoker Tobacco type: cigarettes Alcohol intake: current Alcohol use details: Occasional Substance use: never Exam Narrative: GENERAL: Well-appearing, well-nourished, and in no acute distress. HEAD: Normocephalic, atraumatic. EYES: PERRLA and EOMI. ENT: Nares clear, no rhinorrhea or epistaxis. Mucous membranes moist. NECK: Supple. CHEST: Clear to auscultation. No respiratory distress. HEART: Regular rate and rhythm. No murmur heard. Normal peripheral pulses. ABDOMEN: Soft, tenderness to palpation the right lower quadrant, nondistended, normal active bowel sounds. EXTREMITIES: Normal range of motion. No edema. SKIN: Warm, dry, no rash. NEURO: No focal deficits. Alert and oriented x3. PSYCH: Normal mood and affect. Course Vital Signs Vital signs: Vital Signs Temperature 36.7 C 01/25/23 19:11 Pulse Rate 87 01/25/23 19:11 Respiratory Rate 16 01/25/23 19:11 Blood Pressure 151/78 H 01/25/23 19:11 Pulse Oximetry 97 01/25/23 19:11 Oxygen Delivery Room Air 01/25/23 19:11 Temperature 36.7 C 01/25/23 19:11 Pulse Rate 87 01/25/23 19:11 Respiratory Rate 16 01/25/23 19:11 Blood Pressure 151/78 H 01/25/23 19:11 Pulse Oximetry 97 01/25/23 19:11 Oxygen Delivery Room Air 01/25/23 19:11 Medical Decision Making MDM Narrative Medical decision making narrative: Differential diagnosis includes appendicitis, colitis, ovarian cyst, Laboratory studies were obtained and showed a white blood cell count of 15.7. Electrolytes are within normal limits liver enzymes were within normal limits lipase was normal urinalysis showed no evidence of UTI. test was negative CT scan of the abdomen pelvis showed mild right-sided free fluid representing physiological cyst rupture and normal appendix. Vital Signs Vital Signs: Vital Signs Temperature 36.7 C 01/25/23 19:11 Pulse Rate 87 01/25/23 19:11 Respiratory Rate 16 01/25/23 19:11 Blood Pressure 151/78 H 01/25/23 19:11 Pulse Oximetry 97 01/25/23 19:11 Oxygen Delivery Room Air 01/25/23 19:11 Temperature 36.7 C 01/25/23 19:11 Pulse Rate 87 01/25/23 19:11 Respiratory Rate 16 01/25/23 19:11 Blood Pressure 151/78 H 01/25/23 19:11 Pulse Oximetry 97 01/25/23 19:11 Oxygen Delivery Room Air 01/25/23 19:11 Lab Data 01/25/23 19:19 01/25/23 19:19 Labs: Lab Results 03
[2023-01-25] MEDS: HYDROcodone/acetaminophen (*CRX) 5-325 MG TABLET 1 TAB PO (23:58)
[2023-01-26 00:03] VITALS: PULSE 72; RESP 16; O2SAT 100
== END 2023-01-26 00:04 | disposition home or self-care (01) ==
PROVIDERS: Emergency Provider Emergency Medicine
DX: R10.31 Right lower quadrant pain (principal); F41.9 Anxiety disorder, unspecified; F17.210 Nicotine dependence, cigarettes, uncomplicated
CPT/HCPCS: 36415; 74177; 80053; 81001; 81025; 83690; 85025; 96361; 96374; 99284; A9270; J2405; J7030; Q9967

== ENCOUNTER 2023-05-23 12:44 | Outpatient (CLI) | payer BC, SELFPAY ==
--- NOTE | ~2023-05-23 | MM_ITS ---
EXAMINATION: MM screening dwaine BI w breana HISTORY: Screening TECHNIQUE: Craniocaudal and mediolateral oblique 3-D tomosynthesis images were obtained and synthetic 2-D images were generated. CAD analysis was submitted and interpreted. COMPARISON: Comparison to multiple prior studies sequentially, with oldest reviewed study dated 02/06. BREAST PARENCHYMAL COMPOSITION: The breasts are extremely dense, which lowers the sensitivity of mamm ography FINDINGS: There is no evidence of suspicious mass, calcification, or architectural distortion to sugg est malignancy in either breast. There has been no suspicious interval change. IMPRESSION: 1. No mammographic evidence of malignancy. 2. Recommend routine screening mammography in one year. BI-RADS Category 1: Negative Reviewed, dictated and finalized at location A.
== END 2023-05-23 12:45 | disposition home or self-care (01) ==
LOC: CHSIMG 12:45
PROVIDERS: PCP Registered Nurse; Visit Provider Registered Nurse
DX: Z12.31 Encounter for screening mammogram for malignant neoplasm of breast (principal)
CPT/HCPCS: 77063; 77067

== ENCOUNTER 2024-04-13 08:11 | Emergency (ER) | payer BC, SELFPAY ==
[2024-04-13 08:18] VITALS: BP 111/76; PULSE 75; RESP 14; TEMP 36.5; O2SAT 100
--- NOTE | 2024-04-13 08:34 | ED.GENADULT ---
HPI - General Adult General Chief complaint: Urogenital-Female Stated complaint: Poss UTI Time Seen by Provider: 04/13/24 08:34 Source: patient, RN notes reviewed and old records reviewed Mode of arrival: ambulatory Limitations: no limitations History of Present Illness HPI narrative: 49-year-old female to Express Care for complaint of urinary frequency, urinary burning and pain for 3 days. Patient has not attempted to treat symptoms at home. Patient denies abdominal pain, back pain, fever, nausea, hematuria. Patient able to tolerate fluids by mouth. Patient in no acute distress. Related Data Home Medications Medication Instructions Recorded Confirmed paroxetine HCl 20 mg tablet 20 mg PO DAILY 04/13/24 04/13/24 Allergies Allergy/AdvReac Type Severity Reaction Status Date / Time Penicillins Allergy Intermediate Hives Verified 04/13/24 08:29 Review of Systems Review of Systems: All systems reviewed & are unremarkable except as noted in HPI and below Constitutional: Constitutional: Reports as per HPI, Denies chills and Denies fever(s) Eyes: Eyes: Reports no additional eye complaints ENT: Reports system reviewed and no additional complaints, except as documented Cardiovascular: Cardiovascular: Reports no additional cardiovascular complaints, Denies chest pain and Denies dyspnea Respiratory: Respiratory: Reports no additional respiratory complaints, Denies cough and Denies dyspnea Gastrointestinal: Gastrointestinal: Reports as per HPI, Denies abdominal pain, Denies nausea and Denies vomiting Genitourinary: Genitourinary: Reports as per HPI, Denies hematuria, Reports nocturia, Reports dysuria, Denies flank pain and Reports urinary urgency Musculoskeletal: Musculoskeletal: Reports as per HPI and Denies back pain Neurologic: Reports system reviewed and no additional complaints, except as documented Psychiatric: Psychiatric: Reports no additional psychiatric complaints PMFSH Past Medical History Medical History Anxiety Ovarian cyst Tobacco abuse Social History Social History Smoking status: Current every day smoker Tobacco type: cigarettes Alcohol intake: current Alcohol use details: Occasional Substance use: never Comments At the time of my signature, I reviewed and agree with the nursing past medical, surgical, social, and family history. There is no relevant family history pertinent to the patient complaint. Exam Const: General: cooperative, healthy appearing, no acute distress, alert and well nourished Nutritional Appearance: well nourished Orientation/consciousness: patient oriented x3 Limitations: no limitations HENMT: Head: normal to inspection Ears: external ears normal Face/Nose/Sinus: Normal external nose present, Normal nares present, normal facial exam, No erythema and No edema Face and sinus: normal facial exam, no erythema and no edema Mouth: Yes Normal oral and palatal mucosa present Eyes: General: appearance normal, both eyes and all related structures Neck: Neck: normal visual inspection, full ROM and no meningeal signs Lymphatic: no lymphadenopathy noted and no lymphedema noted Chest: Chest palpation & inspection: normal inspection of the chest Resp: Effort & Inspection: normal respiratory effort and able to speak in complete sentences Auscultation: clear to auscultation bilaterally Cardio: Jugular venous distension: no JVD Rate: regular rate Rhythm: regular rhythm GI: GI Palp: No abdominal tenderness and Yes Soft to palpation : General: Yes no CVA tenderness Back/Spine/Pelvis: Cervical Spine: cervical ROM normal Skin: General skin exam: normal color, no rashes or lesions noted and turgor normal Neuro: General: patient oriented x3, gait normal, moves all extremities and no meningeal signs Speech: normal speech Gait exam (Neuro): Norm
== END 2024-04-13 08:58 | disposition home or self-care (01) ==
PROVIDERS: Emergency Provider Nurse Practitioner Family; PCP Family Medicine
DX: N39.0 Urinary tract infection, site not specified (principal); B96.20 Unspecified Escherichia coli [E. coli] as the cause of diseases classified elsewhere; F17.210 Nicotine dependence, cigarettes, uncomplicated; F41.9 Anxiety disorder, unspecified
CPT/HCPCS: 81003; 87077; 87086; 87088; 87186; 99213; G0463

== ENCOUNTER 2024-05-24 07:08 | Outpatient (CLI) | payer BC, SELFPAY ==
--- NOTE | ~2024-05-24 | MM_ITS ---
EXAMINATION: MM screening dwaine BI w breana HISTORY: Screening TECHNIQUE: Craniocaudal and mediolateral oblique 3-D tomosynthesis images were obtained and synthetic 2-D images were generated. CAD analysis was submitted and interpreted. COMPARISON: Comparison to multiple prior studies sequentially, with oldest reviewed study dated 02/16. BREAST PARENCHYMAL COMPOSITION: Dense: The breasts are extremely dense, which lowers the sensitivity of mammography. FINDINGS: There is no evidence of suspicious mass, calcification, or architectural distortion to sugg est malignancy in either breast. There has been no suspicious interval change. IMPRESSION: 1. No mammographic evidence of malignancy. 2. Recommend routine screening mammography in one year. BI-RADS Category 1: Negative Reviewed, dictated and finalized at location B.
== END 2024-05-24 07:09 | disposition home or self-care (01) ==
LOC: CHSIMG 07:09
PROVIDERS: PCP Family Medicine; Visit Provider Family Medicine
DX: Z12.31 Encounter for screening mammogram for malignant neoplasm of breast (principal)
CPT/HCPCS: 77063; 77067

== ENCOUNTER 2025-08-03 10:10 | Outpatient (CLI) | payer OTHER, SELFPAY ==
--- OUTSIDE RECORDS SUMMARY | 2018-06-04 03:35 | XMS_ITS | Continuity of Care Document ---
Author Organization [facility] Address [address] [place] [id number] Phone Care Team Providers Care Gate Watch Name Role Phone Jarocho Linares MD Unavailable Unavailable Allergies, Adverse Reactions, Alerts Substance Reaction Status Criticality codeine hyper, heart palpitations Active No Information Medications Medication Instructions Dosage Effective Dates (start - stop) Status Comments Xanax 0.5 mg tablet take 1 tablet by oral route 2 times every day as needed 0.5 MG - Active Trintellix 10 mg tablet take 2 tablet by oral route every day at the same time each day 20 MG - Active metformin 500 mg tablet take 2 tablet by oral route 2 times every day with morning and evening meals 1000 MG - Active rosuvastatin 5 mg tablet take 1 tablet by oral route every day 5 MG - Active Trileptal 300 mg tablet take 2 tablet by oral route 2 times every day 600 MG - Active Synthroid 75 mcg tablet take 1 tablet by oral route every day 75 MCG - Active losartan 25 mg tablet take 1 tablet by oral route every day 25 MG - Active cetirizine 10 mg tablet take 1 tablet by oral route every day 10 MG - Active omeprazole 20 mg capsule,delayed release take 1 capsule by oral route every day before a meal 20 MG - Active Natazia 3 mg/2 mg-2 mg/2 mg-3 mg/1 mg tablet take 1 tablet by oral route every day for 28 days 1.00 tablet - Active fluticasone 50 mcg/actuation nasal spray,suspension inhale 1 spray by intranasal route every day in each nostril 50 MCG - Active ProAir HFA 90 mcg/actuation aerosol inhaler inhale 2 puff by inhalation route every 4 - 6 hours as needed - Active Latuda 40 mg tablet take 1 tablet by oral route every day with food (at least 350 calories) 40 MG - Active Procedures Procedure Date Level Iv-surg Path Gross/t, Lvl IV Ugi Endo; W/bx /mx Colonoscopy Flex; W/bx /mx ASC Facility Charge ASC Facility Charge Offic Cons New/estab Mod Advance Directives Directive Yes / No Effective Date File Name No Information Encounters Encounter Description Practice Location Reason(s) For Visit Diagnoses Date Provider Providers Copied on Encounter [facility], [address] [place] [address], [id number] tel:[phone] [facility] No Information 8 Vijay Avendaño. [address] [place] [address], [id number], [place]. tel:[phone] [facility], [address] [place] [address], [id number] tel:[phone] [facility] No Information 8 Melody Clements. [address] [place] [address], [id number], [place]. tel:[phone] Referring Provider: Ana Walker MD, [address] [place] [address], [id number]. tel:[phone] [facility], [address] [place] [address], [id number] tel:[phone] [facility] HeartburnNoni nfective gastroenterit is and colitis, unspecifiedBe nign neoplasm of sigmoid colonDisease of stomach and duodenum, unspecifiedFu nctional intestinal disorder, unspecifiedPo lyp of colon 8 Melody Clements. [address] [place] [address], [id number], [place]. tel:[phone] Referring Provider: Ana Walker MD, [address] [place] [address], [id number]. tel:[phone] [facility], [address] [place] [address], [id number] tel:[phone] [facility] No Information [facility]. [address] [place] [address], [id number], . tel:[phone] Referring Provider: Tyree Graf, [address] [place] [address], [place], [id number] . tel:[phone] Offic Cons New/estab Mod [facility], [address] [place] [address], [id number] tel:[phone] [facility] abdominal pain (chief complaint) Iron deficiencyDia rrhea, unspecified typeNauseaAno rexia 8 [facility]. [address] [place] [address], [id number], [place]. tel:[phone] Referring Provider: Ana Walker MD, [address] [place] [address], [facility]. tel:[phone] Family History Family Member Type Diagnosis Age At Onset Maternal uncle Problem (finding) esophageal cancer (Ca use Of ) Problem (finding) No family history of Ca ncer, colon Problem (finding) No family history of Co isaiah polyps Father Problem (finding) unknown health history Immunizations Vaccine Date Status Comments Flu (split) (3 yrs or older) administered Source: Other Provider Payers Payer name Insurance type Covered libertarian ID Authoriza tion(s) [facility] [id number] Social History Type Description Quantity Date Captured Comments Sex Female Smoking Status No Information Chief Complaint And Reason For Visit No Information Reason For Referral Reason For Referral No Information Plan Of Treatment Date Type Action Status Goal Tobacco cessation counseling completed Patient Education Colon Polyps: After You r Visit completed Patient Education Upper GI Endoscopy: Bef ore Your Proced completed Patient Education Colonoscopy: Before You r Procedure completed History Of Present Illness Encounter Date Complaint History Of Prese nt Illness abdominal pain This is a 43-yea r-old, female with past medical history of anxiety, DM, HL, and HTN who presents for evaluation of iron deficiency and diarrhea. She notes diarrhea for the past seven years. This began after taking Metformin. When reducing the dose of Metformin, her bowel movements became more formed. When bringing the dose back up her bowel mvoement became loose again. She may have up to ten bowel movements in a day, some days she does not have a bowel movement. Occasionally, she will have a hard stool with straining, however, they are most typically it is loose. Prior to Metformin she notes overall constipation. She has a carissa-umbilical ache, which improves with a bowel movement. She has taken omeprazole daily for years, and reports resolved heartburn with this, but if not taking it will have recurrent symptoms. There is intermittent belching which is annoying to her. She endorses a 20 pound weight loss over the past year, there is a poor appetite and intermittent nausea with rare vomiting. I have reviewed labs from 08/2017. The patient denies any blood donation, or obvious source of blood loss. She reports scant bleeding related to menstrual cycles, and often goes without a period. Denies any family history of colo-rectal cancer, celiac disease, Crohn's disease or UC.She denies regular NSAID or ETOH use. She is a 1/2 pack per day smoker. Functional Status Date Functional Assessmen t No Information Instructions Date Instruction Additional Infor davis citrucel 2 capsules daily with 64 ounces of water Related to Iron deficiency Align 1 capsule daily Related to Iron deficiency Assessments Type Assessment Date No Information Patient Care Teams Name Effective Dates (start - stop) Status Members No Information
--- NOTE | ~2025-08-03 | MM_ITS ---
EXAMINATION: MM screening dwaine BI w breana HISTORY: Screening TECHNIQUE: Craniocaudal and mediolateral oblique 3-D tomosynthesis images were obtained and synthetic 2-D images were generated. CAD analysis was submitted and interpreted. COMPARISON: Comparison to multiple prior studies sequentially, with oldest reviewed study dated 05/05/2020. BREAST PARENCHYMAL COMPOSITION: Dense: The breasts are extremely dense, which lowers the sensitivity of mammography. FINDINGS: There is no evidence of suspicious mass, calcification, or architectural distortion to suggest malignancy in either breast. There has been no suspicious interval change. IMPRESSION: 1. No mammographic evidence of malignancy. 2. Recommend routine screening mammography in one year. BI-RADS Category 1: Negative Reviewed, dictated and finalized at location B.
== END 2025-08-03 10:11 | disposition home or self-care (01) ==
PROVIDERS: PCP Registered Nurse; Visit Provider Registered Nurse
DX: Z12.31 Encounter for screening mammogram for malignant neoplasm of breast (principal)
CPT/HCPCS: 77063; 77067